=== PATIENT | female | born 1970 | race Two or more races ===

== ENCOUNTER 2024-11-22 18:02 | Inpatient (IN) | payer MEDICAID, OTHER ==
[~2024-11-22] VITALS: Ht 149.9 cm; Wt 38.2 kg
--- NOTE | 2024-11-22 18:10 | ECG ---
[facility] Test Date: 2024-11-22 Test Time: 18:07:07 Pat Name: LALITO WHATLEY Department: ED Room: 0288T Gender: F Lmft: shannon : 1970 Requested By: ZURI CUBA Order Number: [id number] Reading MD: Sly Connolly Measurements Intervals Spencer Rate: 98 P: 76 AL: 110 QRS: 63 QRSD: 72 T: 86 QT: 390 QTc: 499 Interpretive Statements Sinus rhythm Borderline short AL interval Right atrial enlargement Borderline prolonged QT interval Electronically Signed On 11-26-2024 20:37:06 PDT by Sly Connolly Please click the below link to view image of tracing.
[2024-11-22] MEDS: NALOXONE HCL 0.4 MG/ML VIAL IV ONE (18:11)
[2024-11-22 18:20] VITALS: PULSE 108; RESP 12; O2SAT 97
[2024-11-22] MEDS: NALOXONE HCL 0.4 MG/ML VIAL ONE (18:23)
[2024-11-22] MEDS: SODIUM CHLORIDE 0.9% 1,000 ML IVB ONE (18:24)
--- NOTE | 2024-11-22 18:27 | ED.PDOC ---
Altered Mental Status HPI Comments 54 y.o female presents to the ED via EMS for an evaluation of ALOC. Patient is coming from [facility] facility, was eating dinner today and went unresponsive. Per staff, patient has decreased appetite x 2 days, and has been non complaint with medication x 2-3 days. Patient's BS read 476 on scene taken by EMS who also states shallow breathing during their assessment and en route. Patient has a history of DM and HTN, however, no other medical history obtained. Time Seen by MD: 18:01 Reviewed Notes: Nurses Notes, Medications, Allergies Allergies: Coded Allergies: UNOBTAINABLE (Unverified , 11/22/24) Information Source: Patient Mode of Arrival: Ambulatory Severity: Unresponsive Timing: Hours Duration: Since onset Quality: Decreased Alertness, Change in Behavior Recent: Other Associated Signs and Symptoms: Other Past Medical History PAST MEDICAL HISTORY: DM, HTN Surgical History: Unobtainable ASSISTED LIVING NURSING DIRECTOR History: Unobtainable Family History Family History: Unobtainable Social History Smoker: Unknown Alcohol: Unobtainable Drugs: Unobtainable Lives In: Assisted Care Unable to Obtain due to: Altered Mental Status Physical Exam General Appearance: Moderate Distress HEENT: Pale Conjuntivae (L), Pale Conjuntivae (R), Pharynx Normal, TMs Normal Neck: Full Range of Motion, Non-Tender, Normal, Normal Inspection Respiratory: Chest Non-Tender, Decreased Breath Sounds, Lungs Clear, No Accessory Muscle Use, Respiratory Distress Cardiovascular: No Edema, No JVD, No Murmur, No Gallop, Normal Peripheral Pulse s, Regular Rate/Rhythm Breast Exam: Deferred Gastrointestinal: No Organomegaly, Non Tender, No Pulsatile Mass, Normal Bowel Sounds, Soft Genitalia: Deferred Pelvic: Deferred Rectal: Deferred Extremities: No calf tenderness, Normal capillary refill, No pedal edema Musculoskeletal : Apperance: Normal Neurologic: air defence officer II-XII nml as Tested, Motor Weakness, No Sensory Deficits, Other (Lethargic) Cerebellar Function: Unable to Test Reflexes: Normal Skin: Dry, Pallor, Other (Cool to touch) Lymphatic: No Adenopathy Was a procedure done? Was a procedure done?: No Differential Diagnosis (ALOC) Differential Diagnosis: Dehydration, Hypoxemia, Drug Overdose, Heart Failure, Renal Failure X-Ray, Labs, Meds, VS Vital Signs Date Time Temp Pulse Resp B/P (MAP) Pulse Ox O2 Delivery O2 Flow Rate FiO2 11/22/24 18:50 105 12 90/50 (63) 98 11/22/24 18:30 94.5 108 12 72/38 (49) 98 94.5 11/22/24 18:20 108 12 97 Nasal Cannula* 4 36 11/22/24 18:16 98 11/22/24 18:07 98 11/22/24 18:02 94.5 99 12 52 (34) 95 94.5 Lab Test 11/22/24 19:17 11/22/24 18:24 Range/Units White Blood Count 10.0 4.4-10.8 10^3/uL Red Blood Count 4.37 4.0-5.20 10^6/uL Hemoglobin 12.5 12.2-16.2 g/dL Hematocrit 41.9 36.0-46.0 % Mean Corpuscular Volume 95.8 80.0-100.0 fL Mean Corpuscular Hemoglobin 28.7 28.0-32.0 pg Mean Corpuscular Hemoglobin Concent 30.0 L 32.0-36.0 g/dL Red Cell Distribution Width 16.9 H 11.8-14.3 % Platelet Count 248 140-450 10^3/uL Mean Platelet Volume 9.1 6.9-10.8 fL Neutrophils (%) (Auto) 80.3 H 37.0-80.0 % Lymphocytes (%) (Auto) 14.5 10.0-50.0 % Monocytes (%) (Auto) 4.8 0.0-12.0 % Eosinophils (%) (Auto) 0.3 0.0-7.0 % Basophils (%) (Auto) 0.1 0.0-2.0 % Neutrophils # (Auto) 8.0 1.6-8.6 10 ^3/uL Lymphocytes # (Auto) 1.4 0.4-5.4 10 ^3/uL Monocytes # (Auto) 0.5 0-1.3 10 ^3/uL Eosinophils # (Auto) 0 0-0.8 10 ^3/uL Basophils # (Auto) 0 0-0.2 10 ^3/uL Nucleated Red Blood Cells 0.1 % Sodium Level 148 H 136-145 mmol/L Potassium Level 4.3 3.5-5.1 mmol/L Chloride Level 115 H 98-107 mmol/L Carbon Dioxide Level 12 L 20-31 mmol/L Anion Gap 21 H 5-15 Blood Urea Nitrogen 68 H 9-23 mg/dL Creatinine 2.21 H 0.550-1.02 mg/dL Glomerular Filtration Rate Calc 26 >90 mL/min BUN/Creatinine Ratio 30.8 H 10.0-20.0 Serum Glucose 345 H 74-106 mg/dL Lactic Acid Level 4.7 *H 0.4-2.0 mmol/L Calcium Level 9.1 8.7-10.4 mg/dL Troponin I High Sensitivity 54 *H </=34 ng/L Blood Gas Specimen Type Arterial Blood Gas Sample Site Left radial Blood Gas Patient Temperature 37.0 Arterial Blood Date Drawn [id number] Arterial Blood pH 7.309 L 7.350-7.450 Arterial Blood Partial Pressure CO2 22.4 L 32.0-45.0 mmHg Arterial Blood Partial Pressure O2 145.7 H 83.0-108.0 mmHg Arterial Blood HCO3 11.0 L 21.0-28.0 mmol/L Arterial Blood Oxygen Saturation 98.7 H 94.0-98.0 % Arterial Blood Base Excess -13.2 L -2.0-3.0 mmol/L Arterial Blood Oxyhemoglobin 97.6 94.0-98.0 % Arterial Blood Carboxyhemoglobin 0.5 0.5-1.5 % Arterial Blood Methemoglobin 0.6 0.0-1.5 % Ant Test Positive Blood Gas Total Hemoglobin 13.30 12.0-16.0 g/dL Blood Gas Liter Flow 3.00 Blood Gas Modality Nasal cannula Blood Gas Spontaneous Rate 16 FiO2 % 32.0 Current Medications Medications (Trade) Dose Ordered Sig/Debbie Route Start Time Stop Time Status Last Admin Sodium Chloride 1,000 ml @ 1,000 mls/hr Q1H ONCE IVB 11/22/24 18:15 11/22/24 19:14 DC 11/22/24 18:24 Naloxone HCl (Narcan) 0.2 mg ONCE ONCE IV 11/22/24 18:30 11/22/24 18:31 DC 11/22/24 18:11 CHEST RADIOGRAPH IMPRESSION: 1. Bilateral perihilar peribronchial thickening. IV Hep-Lock was established. The patient's initial temperature was only 94.5 We obtained the bear hugger. Because of the patient's hypotension and total picture we deemed this patient septic We did go ahead and start fluids per sepsis protocol The patient was also given naloxone 0.2 mg IV push which the patient's seemed to respond well to. The patient was on 3 L nasal cannula and we did an ABG which shows a pH of 7.31/pCO2 of 22/PO2 of 145.7 The CBC is within normal limits The chemistry panel shows hypochloremia with an elevated anion gap and a CO2 level of only 12 The BUN is 68 the creatinine is 2.21 The troponin level is elevated at 54 and the lactic acid level is 4.7 We will continue managing the patient's sepsis At this time, the patient was being admitted to the Images Reviewed?: Images reviewed and evaluated by me Time of 1ST Reevaluation: 18:12 Reevaluation 1ST: Unchanged Patient Education/Counseling: Pt Unresponsive Family Education/Counseling: No Family Present Departure 1 Departure Time of Disposition: 20:35 Impression: Primary Impression: Sepsis Qualified Codes: A41.9 - Sepsis, unspecified organism; R65.20 - Severe sepsis without septic shock; N17.1 - Acute kidney failure with acute cortical necrosis Additional Impressions: Dehydration Hyperchloremia Increased anion gap metabolic acidosis Hypothermia Qualified Codes: T68.XXXA - Hypothermia, initial encounter Disposition: ADMITTED INPATIENT Admit to: VERA Condition: Fair Critical Care Note Critical Care Time?: Yes (30 min-critical care time only) Stability Stability form required: Yes Unstable for transfer: ICU, CCU, PCU, VERA (Intensive VS monitoring), Low BP (low high or fluctuating BP), ED Physician Assesment (Clinical assesment) I personally scribed for ZURI CUBA MD ([email or web address]) on 11/22/24 at 18:27. Electronically submitted by Kylie Espinoza ([email or web address]). I personally scribed for ZURI CUBA MD ([email or web address]) on 11/22/24 at 19:42. Electronically submitted by Kylie Espinoza ([facility]). ZURI CUBA MD Nov 22, 2024 18:27
--- NOTE | 2024-11-22 18:56 | DVH ---
CHEST RADIOGRAPH Indication: sob Technique: Single frontal view of the chest was obtained Comparison: None FINDINGS: Lines and Tubes: None Lungs: Bilateral perihilar peribronchial thickening Pleura: No effusion. No pneumothorax. Cardiomediastinal contours: Unremarkable Bones: No acute osseous abnormality. IMPRESSION: 1. Bilateral perihilar peribronchial thickening.
[2024-11-22 19:05] LABS: Base Excess -13.2 mmol/L (-2.0-3.0)
[2024-11-22 19:15] VITALS: PULSE 100; RESP 10; O2SAT 99
[2024-11-22] MEDS: VANCOMYCIN 1GM/200ML PM 250 ML IV ONE (19:15)
[2024-11-22 19:32] LABS: Basophils # (auto) 0 10 ^3/uL (0-0.2); Basophils % (auto) 0.1 % (0.0-2.0); Eosinophils # (auto) 0 10 ^3/uL (0-0.8); Nucleated Red Blood Cells % 0.1 %
[2024-11-22 19:33] LABS: Eosinophils % (auto) 0.3 % (0.0-7.0); Hematocrit 41.9 % (36.0-46.0); Hemoglobin 12.5 g/dL (12.2-16.2); Lymphocytes # (auto) 1.4 10 ^3/uL (0.4-5.4); Lymphocytes % (auto) 14.5 % (10.0-50.0); Mean Corpuscular Hemoglobin 28.7 pg (28.0-32.0); Mean Corpuscular Volume 95.8 fL (80.0-100.0); Monocytes # (auto) 0.5 10 ^3/uL (0-1.3); Monocytes % (auto) 4.8 % (0.0-12.0); Neutrophils % (auto) 80.3 % (37.0-80.0); Platelet Count (auto) 248 10^3/uL (140-450); Red Blood Cells 4.37 10^6/uL (4.0-5.20); Red Cell Distribution Width 16.9 % (11.8-14.3)
[2024-11-22 19:40] LABS: Potassium 4.3 mmol/L (3.5-5.1)
[2024-11-22 19:41] LABS: Anion Gap 21 (5-15)
[2024-11-22 19:42] LABS: Calcium 9.1 mg/dL (8.7-10.4)
[2024-11-22 19:45] LABS: Carbon Dioxide 12 mmol/L (20-31); Chloride 115 mmol/L (98-107); Sodium 148 mmol/L (136-145)
[2024-11-22 19:47] LABS: BUN/Creatinine Ratio 30.8 (10.0-20.0); Blood Urea Nitrogen 68 mg/dL (9-23); Glucose 345 mg/dL (74-106)
[2024-11-22 19:57] LABS: Lactic Acid w/Reflex 4.7 mmol/L (0.4-2.0)
[2024-11-22] MEDS: cefTRIAXone 1GM/50ML D5W 50 ML IV ONE (21:04)
[2024-11-22] MEDS: SODIUM CHLORIDE 0.9% IV ONE (22:15)
[2024-11-22] MEDS ORDERED: DEXTROSE (50%) 50ML SYRG IV PRN (23:45)
[2024-11-22] MEDS ORDERED: ACETAMINOPHEN 325 MG TAB PO PRN (23:45)
[2024-11-22] MEDS ORDERED: VANCOMYCIN PER PHARMACY 0 MG IV SCH (23:45)
[2024-11-22] MEDS ORDERED: ONDANSETRON HCL 4 MG/2 ML VIAL IV PRN (23:45)
--- NOTE | 2024-11-22 23:53 | DVHHPRES ---
History of Present Illness Resident Creating Document: RACHEL HERNANDEZ History of Present Illness Nba Morin is a 54-year-old female patient who presents to the ED via EMS with chief complaint of altered mental status. Obtained history of present illness and past medical history from EMS due to patient's clinical status. Patient was sent from assisted living facility ([facility]) with chief complaint of unresponsiveness. She had decreased appetite two days previous to her admission and it was on adherent to medication for the past 2-3 days. She was found hypotensive on site (systolic blood pressure in the 50s). Could not obtain review of systems due to clinical status. Past medical history: Hypertension, diabetes Surgical history unobtainable Family history unobtainable Social history: Lives in assisted living facility. Tobacco, alcohol and other drug abuse is unknown. Allergies: Unobtainable Home medication: Unobtainable Patient seen and examined at bedside. Currently does not have new complaints. Per Jimbo score is of 13/15 Past Medical History HPI Past Surgical History Per HPI Family History Per HPI Past Social History Per HPI Review of Systems Review of Systems Per HPI Allergies: Coded Allergies: UNOBTAINABLE (Unverified , 11/22/24) Medications Current Medications Medications Dose Ordered Sig/Debbie Route Start Time Stop Time Status Last Admin Dose Admin Acetaminophen 650 mg Q6HP PRN PO 11/22/24 23:45 Ondansetron HCl 4 mg Q4HP PRN IV 11/22/24 23:45 Sodium Chloride 1,000 ml @ 50 mls/hr Q20H IV 11/22/24 23:45 Ceftriaxone Sodium 50 ml @ 100 mls/hr DAILY@09 IV 11/23/24 09:00 Vancomycin HCl 0 ml @ 0 mls/hr UD IV 11/22/24 23:45 UNV Diagnostic Test (Pha) 1 strip ACHS 11/23/24 07:00 Insulin Human Regular HS SC 11/23/24 22:00 Insulin Human Regular AC SC 11/23/24 07:00 Dextrose 50 ml UD PRN IV 11/22/24 23:45 Exam Vital Signs Vital Signs Date Time Temp Pulse Resp B/P (MAP) Pulse Ox O2 Delivery O2 Flow Rate FiO2 11/22/24 23:30 97.7 98 9 102/46 (64) 100 97.7 11/22/24 18:20 Nasal Cannula* 4 36 Exam Patient lying in bed, in no acute distress General: Lucid, afebrile, mucosae are moist Cardiovascular: Normal S1 and S2. No murmurs, gallops or rubs Respiratory: Normal ventilation mechanics. Clear lung sounds on auscultation Abdomen: Soft, severe suprapubic tenderness, rest of abdomen nontender, no organomegaly, normal bowel sounds. MSK/skin: Mobilizes 4 limbs. Skin is dry and warm Neurological: Oriented in 1 spheres (not in time or place). No motor no sensitive deficits. Pupils are isocoric and reactive Labs/Xrays Labs Test 11/22/24 23:05 11/22/24 21:22 11/22/24 21:17 11/22/24 19:17 Range/Units Troponin I High Sensitivity 51 *H </=34 ng/L POC Glucose 276 H 70-106 mg/dl Lactic Acid Level 1.2 0.4-2.0 mmol/L White Blood Count 10.0 4.4-10.8 10^3/uL Red Blood Count 4.37 4.0-5.20 10^6/uL Hemoglobin 12.5 12.2-16.2 g/dL Hematocrit 41.9 36.0-46.0 % Mean Corpuscular Volume 95.8 80.0-100.0 fL Mean Corpuscular Hemoglobin 28.7 28.0-32.0 pg Mean Corpuscular Hemoglobin Concent 30.0 L 32.0-36.0 g/dL Red Cell Distribution Width 16.9 H 11.8-14.3 % Platelet Count 248 140-450 10^3/uL Mean Platelet Volume 9.1 6.9-10.8 fL Neutrophils (%) (Auto) 80.3 H 37.0-80.0 % Lymphocytes (%) (Auto) 14.5 10.0-50.0 % Monocytes (%) (Auto) 4.8 0.0-12.0 % Eosinophils (%) (Auto) 0.3 0.0-7.0 % Basophils (%) (Auto) 0.1 0.0-2.0 % Neutrophils # (Auto) 8.0 1.6-8.6 10 ^3/uL Lymphocytes # (Auto) 1.4 0.4-5.4 10 ^3/uL Monocytes # (Auto) 0.5 0-1.3 10 ^3/uL Eosinophils # (Auto) 0 0-0.8 10 ^3/uL Basophils # (Auto) 0 0-0.2 10 ^3/uL Nucleated Red Blood Cells 0.1 % Sodium Level 148 H 136-145 mmol/L Potassium Level 4.3 3.5-5.1 mmol/L Chloride Level 115 H 98-107 mmol/L Carbon Dioxide Level 12 L 20-31 mmol/L Anion Gap 21 H 5-15 Blood Urea Nitrogen 68 H 9-23 mg/dL Creatinine 2.21 H 0.550-1.02 mg/dL Glomerular Filtration Rate Calc 26 >90 mL/min BUN/Creatinine Ratio 30.8 H 10.0-20.0 Serum Glucose 345 H 74-106 mg/dL Calcium Level 9.1 8.7-10.4 mg/dL Test 11/22/24 18:24 Range/Units Blood Gas Specimen Type Arterial Blood Gas Sample Site Left radial Blood Gas Patient Temperature 37.0 Arterial Blood Date Drawn [id number] Arterial Blood pH 7.309 L 7.350-7.450 Arterial Blood Partial Pressure CO2 22.4 L 32.0-45.0 mmHg Arterial Blood Partial Pressure O2 145.7 H 83.0-108.0 mmHg Arterial Blood HCO3 11.0 L 21.0-28.0 mmol/L Arterial Blood Oxygen Saturation 98.7 H 94.0-98.0 % Arterial Blood Base Excess -13.2 L -2.0-3.0 mmol/L Arterial Blood Oxyhemoglobin 97.6 94.0-98.0 % Arterial Blood Carboxyhemoglobin 0.5 0.5-1.5 % Arterial Blood Methemoglobin 0.6 0.0-1.5 % Ant Test Positive Blood Gas Total Hemoglobin 13.30 12.0-16.0 g/dL Blood Gas Liter Flow 3.00 Blood Gas Modality Nasal cannula Blood Gas Spontaneous Rate 16 FiO2 % 32.0 Assessment/Plan Assessment/Plan Assessment: Metabolic encephalopathy secondary to sepsis Septic shock probably secondary to aspiration pneumonia Acute respiratory failure probably secondary to aspiration pneumonia CELSA hemodynamically mediated NSTEMI probable type 2 secondary to above Hypothermia Metabolic acidosis with increased anion gap (hyperlacticacidemia) Diabetes Plan: Ordered IV fluids and empiric IV antibiotic (ceftriaxone and vancomycin). Ordered blood, sputum and urine culture. Patient is currently on nasal cannula at 4 L/minute Ordered Thomas catheter placement Ordered head CT to rule out intracranial bleed Patient partially responded to IV fluids, we will order norepinephrine as standby for hypotension. Patient is currently ICU status. Ordered hemoglobin A1c, patient currently on insulin sliding scale Goals of care could not be discussed with patient due to mental status. We will treat as full code status at this point Discussed plan with Dr. Steven, patient and nurses: Currently patient is ICU status due to soft blood pressure which partially responded to IV fluids, empiric IV antibiotic. Awaiting results of culture. Patient has poor prognosis Plan discussed with: Patient, Other (Nurses) My Orders Orders - RACHEL HERNANDEZ RESIDENT Procedure Category Date Status Time Admit ADMIT 11/22/24 Transmitted 23:37 Code Status CODE 11/22/24 Transmitted 23:37 Vital Signs MARVIN 11/22/24 In Process 23:37 Review Orders With [facility] 11/22/24 In Process Adm. 23:37 Npo (Nothing By DIET 11/23/24 Transmitted Mouth) Diet Breakfast Acetaminophen Tablet PHA 11/22/24 In Process (Tylenol Tablet) 23:45 Notify Of Changes [facility] 11/22/24 In Process From Base 23:37 Advance Directive MARVIN 11/22/24 In Process 23:37 Urine Bacterial JASON 11/22/24 Logged Culture 23:37 Patient Condition ORDERS 11/22/24 Transmitted 23:37 Allergies MARVIN 11/22/24 In Process 23:37 Ondansetron Hcl PHA 11/22/24 In Process (Zofran) 23:45 Drug Screen LAB 11/22/24 Logged 23:37 Oxygen By Nasal RT 11/22/24 Transmitted Cannula 23:37 Stat Ekg For Chest MARVIN 11/22/24 In Process Pain 23:37 Notify Of Changes [facility] 11/22/24 In Process From Base 23:37 [employer] Crane Operator For [facility] 11/22/24 In Process 24 Hours 23:37 Emergency Dysrhythmia MARVIN 11/22/24 In Process Protocol 23:37 Rhythm Strips Once MARVIN 11/22/24 In Process Every Shift 23:37 Complete Blood Count LAB 11/23/24 Verified 04:00 Comprehensive LAB 11/23/24 Verified Metabolic Panel 04:00 Magnesium LAB 11/23/24 Verified 04:00 Phosphorus LAB 11/23/24 Verified 04:00 Sodium Chloride 0.9% PHA 11/22/24 In Process 23:45 Sodium Chloride 0.9% PHA 11/22/24 In Process 23:45 Ceftriaxone 1gm/50ml PHA 11/23/24 In Process D5w (Rocephin) 09:00 Vancomycin Per PHA 11/22/24 Pending Pharmacy 23:45 Glucose Blood PHA 11/23/24 In Process (Accu-Chek Comfort 07:00 Insulin R (Human) PHA 11/23/24 In Process (Insulin R) 22:00 Insulin R (Human) PHA 11/23/24 In Process (Insulin R) 07:00 Dextrose 50% Syringe PHA 11/22/24 In Process 23:45 Thomas Catheters ED NURSING 11/22/24 Transmitted Date of Service: Nov 23, 2024 Billing Provider: SURYA STEVEN MD Common Visit Codes: [id number] INP/OBS CARE (HIGH) RACHEL HERNANDEZ RESIDENT Nov 22, 2024 23:53 SURYA STEVEN MD Nov 30, 2024 22:02
[2024-11-23] MEDS: SODIUM CHLORIDE 0.9% 1,000 ML IV ONE (00:01)
[2024-11-23] MEDS: SODIUM CHLORIDE 0.9% 1,000 ML IV SCH (00:01)
[2024-11-23 02:46] LABS: Urine Bacteria None Seen /hpf (None Seen)
[2024-11-23 03:25] LABS: Amphetamine Screen, Urine Neg (NEGATIVE); Barbiturate Scree,Urine Neg (NEGATIVE); Benzodiazephine Screen, Urine Neg (NEGATIVE); Cannabinoid Screen, Urine Neg (NEGATIVE); Cocaine Screen, Urine Neg (NEGATIVE); Opiate Scree,Urine Neg (NEGATIVE); Phencyclidine Screen, Urine Neg (NEGATIVE)
[2024-11-23 03:30] LABS: Urine Blood Negative /uL (Negative); Urine Clarity Clear (Clear); Urine Color Yellow (Yellow); Urine Mucus FEW (None Seen); Urine Protein, UAD TRACE (Negative); Urine Specific Gravity 1.019 (1.001-1.035); Urine Squamous Epithelial Cell None Seen /hpf (<5); Urine Urobilinogen Normal (Negative); Urine WBC 1 /HPF (0-5); Urine pH 5.5 (5.0-9.0)
[2024-11-23 03:37] LABS: COVID19 ANTIGEN SOFIA FIA NEGATIVE (NEGATIVE); Rapid Influenza A Negative (Negative); Rapid Influenza B Negative (Negative)
[2024-11-23 04:09] LABS: Basophils # (auto) 0 10 ^3/uL (0-0.2); Basophils % (auto) 0.1 % (0.0-2.0); Eosinophils # (auto) 0.1 10 ^3/uL (0-0.8); Eosinophils % (auto) 1.2 % (0.0-7.0); Hematocrit 39.2 % (36.0-46.0); Hemoglobin 12.8 g/dL (12.2-16.2); Lymphocytes # (auto) 2.5 10 ^3/uL (0.4-5.4); Mean Corpuscular Hemoglobin 29.7 pg (28.0-32.0); Mean Corpuscular Hgb Conc. 32.7 g/dL (32.0-36.0); Mean Corpuscular Volume 90.7 fL (80.0-100.0); Monocytes # (auto) 0.7 10 ^3/uL (0-1.3); Monocytes % (auto) 6.8 % (0.0-12.0); Neutrophils # (auto) 7.2 10 ^3/uL (1.6-8.6); Neutrophils % (auto) 67.9 % (37.0-80.0); Nucleated Red Blood Cells % 0.2 %; Platelet Count (auto) 237 10^3/uL (140-450); Red Blood Cells 4.32 10^6/uL (4.0-5.20); Red Cell Distribution Width 15.4 % (11.8-14.3); White Blood Cell 10.5 10^3/uL (4.4-10.8)
[2024-11-23] MEDS ORDERED: ENOXAPARIN SOD 30 MG/0.3 ML SYRINGE IV ONE (04:15)
[2024-11-23 04:23] LABS: INR 0.99 (0.9-1.15); Partial Thromboplastin Time 24.1 SEC (24.5-34.5); Prothrombin Time 10.5 sec (9.3-11.8)
[2024-11-23 04:36] LABS: Albumin 3.5 g/dL (3.2-4.8); Anion Gap 10 (5-15); BUN/Creatinine Ratio 27.9 (10.0-20.0); Bilirubin, Direct 0.1 mg/dL (<0.3); Magnesium 1.7 mg/dL (1.6-2.6); Potassium 4.4 mmol/L (3.5-5.1); Total Protein 6.3 g/dL (5.7-8.2)
[2024-11-23 04:37] LABS: Bilirubin, Total 0.3 mg/dL (0.2-1.0); Phosphorus 2.9 mg/dL (2.4-5.1)
[2024-11-23 04:43] LABS: Alanine Aminotransferase < 9 U/L (7-40); Alkaline Phosphatase 153 U/L (46-116); Aspartate Aminotransferase 12 U/L (13-40); Blood Urea Nitrogen 43 mg/dL (9-23); Calcium 8.3 mg/dL (8.7-10.4); Carbon Dioxide 17 mmol/L (20-31); Chloride 121 mmol/L (98-107); Cholesterol 213 mg/dL (< 200); Glucose 262 mg/dL (74-106); HDL Cholesterol 36 mg/dL (40-59); LDL Cholesterol 130 mg/dL (< 100); Sodium 148 mmol/L (136-145); Triglycerides 212 mg/dL (< 150)
--- NOTE | 2024-11-23 05:49 | DVH ---
EXAM: XR Chest, 1 View CLINICAL INDICATION: SOB TECHNIQUE: Frontal view of the chest. COMPARISON: XY CHEST PORTABLE on DOS: 11/22/24 FINDINGS: LUNGS AND PLEURAL SPACES: Unremarkable. No consolidation. No pneumothorax. HEART: Unremarkable. No cardiomegaly. MEDIASTINUM: Unremarkable. Normal mediastinal contour. BONES/JOINTS: Unremarkable. No acute fracture. OTHER FINDINGS: . None. IMPRESSION: No acute cardiopulmonary process.
--- NOTE | 2024-11-23 05:51 | DVH ---
EXAM: CT Head Without Intravenous Contrast CLINICAL INDICATION: Altered mental status TECHNIQUE: Axial computed tomography images of the head/brain without intravenous contrast. This CT exam was performed using one or more of the following dose reduction techniques: automated exposure control, adjustment of the mA and/or kV according to patient size, and/or use of iterative reconstru ction technique. CONTRAST: RADIATION DOSE: CTDIvol = 33.9 mGy, DLP = 960.78 mGy-cm COMPARISON: None FINDINGS: ARTIFACTS: Streak artifacts limit the evaluation for subtle intracranial hemorrhage. No gross intra cranial hemorrhage, midline shift or mass effect. If symptoms persist, further evaluation with MRI i s recommended. BRAIN AND EXTRA-AXIAL SPACES: See above. BONES/JOINTS: Unremarkable. No acute fracture. SOFT TISSUES: Unremarkable. SINUSES: Unremarkable as visualized. No acute sinusitis. MASTOID AIR CELLS: Unremarkable as visualized. No mastoid effusion. OTHER FINDINGS: . IMPRESSION: Streak artifacts limit the evaluation for subtle intracranial hemorrhage. No gross intracranial hemo rrhage, midline shift or mass effect. If symptoms persist, further evaluation with MRI is recommendromero dPascale
[2024-11-23] MEDS: InsuLIN REG 1unit/0.01ml Soln (100units/ml) SC SCH ×2 (06:49→22:40)
[2024-11-23] MEDS: ACCU-CHEK COMFORT CURVE STRIP VI SCH (07:17)
[2024-11-23] MEDS: NOREPINEPHRINE 8 MG/250ML KIT 250 ML IV SCH (07:47)
[2024-11-23] MEDS ORDERED: cefTRIAXone 1GM/50ML D5W 50 ML IV SCH (09:00)
[2024-11-23 09:08] VITALS: BP 133/61; PULSE 83; RESP 18; TEMP 98.6; O2SAT 98
[2024-11-23 09:09] VITALS: PULSE 83; RESP 18; O2SAT 98
--- NOTE | 2024-11-23 09:33 | DVHPN2 ---
Subjective Encephalopathic Reviewed: Care Plan, H&P, Labs, Medications Changes from previous H/P or p: No Changes General: Per HPI Objective Vitals Vital Signs Date Time Temp Pulse Resp B/P (MAP) Pulse Ox O2 Delivery O2 Flow Rate FiO2 11/23/24 09:05 84 11/23/24 08:19 Nasal Cannula* 2 28 11/23/24 08:00 98.6 12 133/61 (85) 100 98.6 Intake/Output Intake and Output 11/23/24 07:00 Intake Total 3880 ml Balance 3880 ml Intake IV Total 3880 ml General Appearance: mild distress, Other (Encephalopathic) HEENT: Atraumatic, PERRLA Lungs: Clear to auscultation, Normal air movement Cardiovascular: Normal S1, Normal S2 Abdomen: Normal bowel sounds, Soft, No tenderness Musculoskeletal: Normal sensory function, Normal motor function Neuro: Normal gait, Normal speech Skin: Dry, Intact Psych/Mental Status: Mental status NL, Mood NL Medications Current Medications Medications Dose Ordered Sig/Debbie Route Start Time Stop Time Status Last Admin Dose Admin Acetaminophen 650 mg Q6HP PRN PO 11/22/24 23:45 Ondansetron HCl 4 mg Q4HP PRN IV 11/22/24 23:45 Sodium Chloride 1,000 ml @ 50 mls/hr Q20H IV 11/22/24 23:45 11/23/24 00:01 50 MLS/HR Vancomycin HCl 0 ml @ 0 mls/hr UD IV 11/22/24 23:45 Diagnostic Test (Pha) 1 strip ACHS 11/23/24 07:00 11/23/24 07:17 1 STRIP Insulin Human Regular HS SC 11/23/24 22:00 Insulin Human Regular AC SC 11/23/24 07:00 11/23/24 06:49 3 UNITS Dextrose 50 ml UD PRN IV 11/22/24 23:45 Norepinephrine Bitartrate 250 ml @ 3.75 mls/hr Q24H IV 11/23/24 01:15 Pantoprazole Sodium 40 mg DAILY IV 11/23/24 10:00 Meropenem 50 ml @ 17 mls/hr Q8HR IV 11/23/24 14:00 UNV Vancomycin HCl 100 ml @ 200 mls/hr Q16H IV 11/23/24 12:00 Laboratory Results Laboratory Tests 11/23/24 03:46 Chemistry Test 11/22/24 19:17 11/23/24 03:46 Calcium Level 9.1 mg/dL (8.7-10.4) 8.3 mg/dL (8.7-10.4) L Albumin 3.5 g/dL (3.2-4.8) Magnesium Level 1.7 mg/dL (1.6-2.6) Phosphorus Level 2.9 mg/dL (2.4-5.1) Total Protein 6.3 g/dL (5.7-8.2) Coagulation Test 11/23/24 03:46 Prothrombin Time 10.5 sec (9.3-11.8) Prothrombin Time INR 0.99 (0.9-1.15) Activated Partial Thromboplast Time 24.1 SEC (24.5-34.5) L Lipid panel Test 11/23/24 03:46 Cholesterol Level 213 mg/dL (< 200) H HDL Cholesterol 36 mg/dL (40-59) L Triglycerides Level 212 mg/dL (< 150) H LFT Test 11/23/24 03:46 Alanine Aminotransferase (ALT) < 9 U/L (7-40) Alkaline Phosphatase 153 U/L (46-116) H Aspartate Amino Transferase (AST) 12 U/L (13-40) L Direct Bilirubin 0.1 mg/dL (<0.3) Total Bilirubin 0.3 mg/dL (0.2-1.0) HgA1c, TSH Test 11/23/24 03:46 Thyroid Stimulating Hormone (TSH) 0.43 uIU/mL (0.55-4.78) L Urinalysis Test 11/23/24 02:41 Urine Color Yellow (Yellow) Urine Clarity Clear (Clear) Urine pH 5.5 (5.0-9.0) Urine Specific [place] 1.019 (1.001-1.035) Urine Protein Trace (Negative) H Urine Ketones Trace (Negative) Urine Blood Negative /uL (Negative) Urine Nitrite Negative (Negative) Urine Bilirubin Negative (Negative) Urine Urobilinogen Normal mg/dL (Negative) Urine Leukocyte Esterase Negative /uL (Negative) Urine RBC 1 /hpf (0 - 4) Urine Microscopic WBC 1 /HPF (0-5) Urine Squamous Epithelial Cells None seen /hpf (<5) Urine Bacteria None seen /hpf (None Seen) Urine Mucus Few (None Seen) Urine Glucose 4+ mg/dL (Normal) H Blood Gas Results Test 11/22/24 18:24 Arterial Blood pH 7.309 (7.350-7.450) FiO2 % 32.0 Labs and/or images reviewed: Labs reviewed by me, Image(s) reviewed by me Assessment/Plan Assessment/Plan Impression: -probable toxic metabolic encephalopathy secondary to prescribed medications -cachexia -acute kidney injury , probable vasomotor nephropathy as well as prerenal -hypovolemic hypotension -hyperglycemia, probable diabetes mellitus Plan: -patient was blood pressure improved with IV resuscitation. Downgraded to telemetry unit -continue empiric antibiotic therapy -regular insulin sliding scale -NPO until patient awakens -pfeiffer cultures -PUD, DVT prophylaxis -hold hypnotics, antipsychotics -repeat Labs in a.m. Total time spent with patient discussing and formulating plan of care: 35 minutes. This medical document was created using an electronic medical record system with [employer] dictation system. Although this document has been carefully reviewed, there may still be some phonetic and typographical errors. These areas are purely typographical due to imperfections of the software programs, and do not reflect any compromise in the patient's medical care. Plan discussed with: Patient, Other (RN) Date of Service: Nov 23, 2024 Billing Provider: CAITLIN GRECO NP Common Visit Codes: [id number] INP/OBS CARE(HIGH) CAITLIN GRECO NP Nov 23, 2024 09:33
[2024-11-23] MEDS: PANTOPRAZOLE 40 MG/10 ML VIAL INJ IV SCH (09:39)
[2024-11-23] MEDS: MEROPENEM 1GM IVPB 50 ML IV SCH (11:26)
[2024-11-23] MEDS: VANCOMYCIN 500mg/100mL 100 ML IV SCH (12:00)
[2024-11-23 13:53] VITALS: O2SAT 97
[2024-11-23 20:00] VITALS: PULSE 101; RESP 12; O2SAT 97
[2024-11-24] MEDS: VANCOMYCIN 1 GM/200 ML IV ONE (06:44)
[2024-11-24 13:36] LABS: Basophils # (auto) 0 10 ^3/uL (0-0.2); Basophils % (auto) 0.6 % (0.0-2.0); Eosinophils # (auto) 0.7 10 ^3/uL (0-0.8); Eosinophils % (auto) 9.9 % (0.0-7.0); Hematocrit 36.8 % (36.0-46.0); Hemoglobin 11.8 g/dL (12.2-16.2); Lymphocytes # (auto) 2.5 10 ^3/uL (0.4-5.4); Lymphocytes % (auto) 36.1 % (10.0-50.0); Mean Corpuscular Hemoglobin 28.3 pg (28.0-32.0); Mean Corpuscular Volume 88.4 fL (80.0-100.0); Monocytes # (auto) 0.5 10 ^3/uL (0-1.3); Monocytes % (auto) 7.2 % (0.0-12.0); Neutrophils # (auto) 3.2 10 ^3/uL (1.6-8.6); Neutrophils % (auto) 46.2 % (37.0-80.0); Nucleated Red Blood Cells % 0.1 %; Platelet Count (auto) 185 10^3/uL (140-450); Red Blood Cells 4.16 10^6/uL (4.0-5.20)
[2024-11-24 14:26] VITALS: PULSE 86; RESP 14
[2024-11-24 18:47] VITALS: BP 154/100; PULSE 102; RESP 18; TEMP 97.8; O2SAT 96
--- NOTE | 2024-11-24 19:20 | DVHPN2 ---
Subjective Continues to be very lethargic and does not wake up Reviewed: Care Plan, H&P, Labs, Medications Changes from previous H/P or p: No Changes General: Per HPI Objective Vitals Vital Signs Date Time Temp Pulse Resp B/P (MAP) Pulse Ox O2 Delivery O2 Flow Rate FiO2 11/24/24 18:47 97.8 102 18 154/100 (118) 96 97.8 11/24/24 14:26 Room Air* 0 N/A Nasal Cannula* Intake/Output Intake and Output 11/24/24 07:00 Intake Total 1302 ml Output Total 1200 ml Balance 102 ml Intake Oral 0 ml IV Total 1302 ml Output Urine Total 1200 ml General Appearance: mild distress, Other (Encephalopathic) HEENT: Atraumatic, PERRLA Lungs: Clear to auscultation, Normal air movement Cardiovascular: Normal S1, Normal S2 Abdomen: Normal bowel sounds, Soft, No tenderness Musculoskeletal: Normal sensory function, Normal motor function Neuro: Normal gait, Normal speech Skin: Dry, Intact Psych/Mental Status: Mental status NL, Mood NL Medications Current Medications Medications Dose Ordered Sig/Debbie Route Start Time Stop Time Status Last Admin Dose Admin Acetaminophen 650 mg Q6HP PRN PO 11/22/24 23:45 Ondansetron HCl 4 mg Q4HP PRN IV 11/22/24 23:45 Sodium Chloride 1,000 ml @ 50 mls/hr Q20H IV 11/22/24 23:45 11/23/24 21:08 50 MLS/HR Vancomycin HCl 0 ml @ 0 mls/hr UD IV 11/22/24 23:45 Diagnostic Test (Pha) 1 strip ACHS 11/23/24 07:00 11/24/24 17:13 1 STRIP Insulin Human Regular HS SC 11/23/24 22:00 Insulin Human Regular AC SC 11/23/24 07:00 11/23/24 06:49 3 UNITS Dextrose 50 ml UD PRN IV 11/22/24 23:45 Norepinephrine Bitartrate 250 ml @ 3.75 mls/hr Q24H IV 11/23/24 01:15 Pantoprazole Sodium 40 mg DAILY IV 11/23/24 10:00 11/24/24 10:08 40 MG Vancomycin HCl 100 ml @ 200 mls/hr Q16H IV 11/25/24 01:00 Meropenem 50 ml @ 17 mls/hr Q8HR IV 11/24/24 22:00 Laboratory Results Laboratory Tests 11/23/24 03:46 11/24/24 08:18 11/24/24 13:15 Urinalysis Test 11/23/24 02:41 Urine Color Yellow (Yellow) Urine Clarity Clear (Clear) Urine pH 5.5 (5.0-9.0) Urine Specific [place] 1.019 (1.001-1.035) Urine Protein Trace (Negative) H Urine Ketones Trace (Negative) Urine Blood Negative /uL (Negative) Urine Nitrite Negative (Negative) Urine Bilirubin Negative (Negative) Urine Urobilinogen Normal mg/dL (Negative) Urine Leukocyte Esterase Negative /uL (Negative) Urine RBC 1 /hpf (0 - 4) Urine Microscopic WBC 1 /HPF (0-5) Urine Squamous Epithelial Cells None seen /hpf (<5) Urine Bacteria None seen /hpf (None Seen) Urine Mucus Few (None Seen) Urine Glucose 4+ mg/dL (Normal) H Microbiology Microbiology Date/Time Source Procedure Growth Status 11/23/24 02:41 Voided Urine Urine Culture - Preliminary Resulted 11/22/24 19:17 Blood Blood Culture - Preliminary NO GROWTH AFTER 24 HOURS OF INCUBATION. Resulted Assessment/Plan Assessment/Plan Impression: -probable toxic metabolic encephalopathy secondary to prescribed medications -cachexia -acute kidney injury , probable vasomotor nephropathy as well as prerenal -hypovolemic hypotension -hyperglycemia, probable diabetes mellitus Plan: -patient was blood pressure improved with IV resuscitation. Downgraded to telemetry unit -continue empiric antibiotic therapy -regular insulin sliding scale -NPO until patient awakens -pfeiffer cultures -PUD, DVT prophylaxis -hold hypnotics, antipsychotics -repeat Labs in a.m. Total time spent with patient discussing and formulating plan of care: 35 minutes. Plan discussed with: Other (nurse) Date of Service: Nov 24, 2024 Billing Provider: ALKA CONNORS MD Common Visit Codes: [id number] INP/OBS CARE(HIGH) ALKA CONNORS MD Nov 24, 2024 19:20
[2024-11-24 20:00] VITALS: PULSE 82; RESP 18; O2SAT 99
[2024-11-24 20:42] VITALS: BP 143/84; PULSE 86; RESP 15; TEMP 97.8; O2SAT 95
[2024-11-24] MEDS: LORazepam 2MG/ML-1ML VIAL IM ONE (23:26)
[2024-11-25] VITALS (8 sets, daily range): BP systolic 139–166; BP diastolic 67–89; PULSE 74–93; RESP 15–19; TEMP 97.1–98; O2SAT 94–99
[2024-11-25] MEDS: VANCOMYCIN 500mg/100mL 100 ML IV SCH (01:00)
[2024-11-25] MEDS: MEROPENEM 1GM IVPB 50 ML IV SCH (01:01)
[2024-11-25] MEDS: VANCOMYCIN HCL 500 MG VL ONE (01:49)
[2024-11-25 07:45] LABS: Basophils # (auto) 0 10 ^3/uL (0-0.2); Basophils % (auto) 0.3 % (0.0-2.0); Eosinophils # (auto) 0.6 10 ^3/uL (0-0.8); Eosinophils % (auto) 8.6 % (0.0-7.0); Hematocrit 36.3 % (36.0-46.0); Hemoglobin 12.2 g/dL (12.2-16.2); Lymphocytes # (auto) 2.9 10 ^3/uL (0.4-5.4); Lymphocytes % (auto) 39.4 % (10.0-50.0); Mean Corpuscular Hemoglobin 29.3 pg (28.0-32.0); Mean Corpuscular Hgb Conc. 33.5 g/dL (32.0-36.0); Mean Corpuscular Volume 87.5 fL (80.0-100.0); Monocytes # (auto) 0.5 10 ^3/uL (0-1.3); Monocytes % (auto) 7.3 % (0.0-12.0); Neutrophils # (auto) 3.3 10 ^3/uL (1.6-8.6); Neutrophils % (auto) 44.4 % (37.0-80.0); Platelet Count (auto) 175 10^3/uL (140-450); Red Blood Cells 4.15 10^6/uL (4.0-5.20); White Blood Cell 7.3 10^3/uL (4.4-10.8)
--- NOTE | 2024-11-25 14:39 | DVHPN2 ---
Subjective Patient went drawn, reported to be attempting to hit staff. Reviewed: Care Plan, H&P, Labs, Medications Changes from previous H/P or p: No Changes General: Per HPI Objective Vitals Vital Signs Date Time Temp Pulse Resp B/P (MAP) Pulse Ox O2 Delivery O2 Flow Rate FiO2 11/25/24 13:00 97.1 80 15 147/78 (101) 95 97.1 11/25/24 08:00 Room Air* 0 21 Intake/Output Intake and Output 11/25/24 07:00 Intake Total 709 ml Output Total 900 ml Balance -191 ml Intake Oral 0 ml IV Total 709 ml Output Urine Total 900 ml Stool Total 0 ml General Appearance: mild distress, Other (Encephalopathic) HEENT: Atraumatic, PERRLA Lungs: Clear to auscultation, Normal air movement Cardiovascular: Normal S1, Normal S2 Abdomen: Normal bowel sounds, Soft, No tenderness Musculoskeletal: Normal sensory function, Normal motor function Neuro: Normal gait, Normal speech Skin: Dry, Intact Psych/Mental Status: Mental status NL, Mood NL Medications Current Medications Medications Dose Ordered Sig/Debbie Route Start Time Stop Time Status Last Admin Dose Admin Acetaminophen 650 mg Q6HP PRN PO 11/22/24 23:45 Ondansetron HCl 4 mg Q4HP PRN IV 11/22/24 23:45 Sodium Chloride 1,000 ml @ 50 mls/hr Q20H IV 11/22/24 23:45 11/23/24 21:08 50 MLS/HR Vancomycin HCl 0 ml @ 0 mls/hr UD IV 11/22/24 23:45 Diagnostic Test (Pha) 1 strip ACHS 11/23/24 07:00 11/25/24 11:25 1 STRIP Insulin Human Regular HS SC 11/23/24 22:00 Insulin Human Regular AC SC 11/23/24 07:00 11/23/24 06:49 3 UNITS Dextrose 50 ml UD PRN IV 11/22/24 23:45 Norepinephrine Bitartrate 250 ml @ 3.75 mls/hr Q24H IV 11/23/24 01:15 Pantoprazole Sodium 40 mg DAILY IV 11/23/24 10:00 11/24/24 10:08 40 MG Vancomycin HCl 100 ml @ 200 mls/hr Q16H IV 11/25/24 01:00 Meropenem 50 ml @ 17 mls/hr Q8HR IV 11/24/24 22:00 11/25/24 13:48 17 MLS/HR Laboratory Results Laboratory Tests 11/23/24 03:46 11/25/24 06:00 Urinalysis Test 11/23/24 02:41 Urine Color Yellow (Yellow) Urine Clarity Clear (Clear) Urine pH 5.5 (5.0-9.0) Urine Specific [place] 1.019 (1.001-1.035) Urine Protein Trace (Negative) H Urine Ketones Trace (Negative) Urine Blood Negative /uL (Negative) Urine Nitrite Negative (Negative) Urine Bilirubin Negative (Negative) Urine Urobilinogen Normal mg/dL (Negative) Urine Leukocyte Esterase Negative /uL (Negative) Urine RBC 1 /hpf (0 - 4) Urine Microscopic WBC 1 /HPF (0-5) Urine Squamous Epithelial Cells None seen /hpf (<5) Urine Bacteria None seen /hpf (None Seen) Urine Mucus Few (None Seen) Urine Glucose 4+ mg/dL (Normal) H Microbiology Microbiology Date/Time Source Procedure Growth Status 11/23/24 02:41 Voided Urine Urine Culture - Final Complete 11/22/24 19:17 Blood Blood Culture - Preliminary NO GROWTH AFTER 48 HOURS OF INCUBATION. Resulted Labs and/or images reviewed: Labs reviewed by me, Image(s) reviewed by me Assessment/Plan Assessment/Plan Impression: -probable toxic metabolic encephalopathy secondary to prescribed medications -cachexia -acute kidney injury , probable vasomotor nephropathy as well as prerenal -hypovolemic hypotension -hyperglycemia, probable diabetes mellitus Plan: -events: All cultures were negative. Patient continues to be NPO. We will attempt to start oral intake with nutritional supplementation. -discontinue antibiotic therapy -regular insulin sliding scale -PUD, DVT prophylaxis -hold hypnotics, antipsychotics -consider transferring back to senior living facility once patient tolerates oral intake. Total time spent with patient discussing and formulating plan of care: 35 minutes. This medical document was created using an electronic medical record system with [employer] dictation system. Although this document has been carefully reviewed, there may still be some phonetic and typographical errors. These areas are purely typographical due to imperfections of the software programs, and do not reflect any compromise in the patient's medical care. Plan discussed with: Patient, Other (RN) Date of Service: Nov 25, 2024 Billing Provider: CAITLIN GRECO NP Common Visit Codes: [id number] INP/OBS CARE(HIGH) CAITLIN GRECO NP Nov 25, 2024 14:39
[2024-11-25] MEDS ORDERED: Glucerna 1.2 Cal 1Liter BOTTLE GT SCH (14:45)
[2024-11-25] MEDS: Glucerna Carbsteady SHAKE Vanilla 8oz PO SCH (17:48)
[2024-11-26] VITALS (8 sets, daily range): BP systolic 84–113; BP diastolic 44–71; PULSE 79–101; RESP 18–20; TEMP 97.9–98; O2SAT 94–99
[2024-11-26] MEDS: risperiDONE 1 MG TAB PO SCH (10:30)
--- NOTE | 2024-11-26 10:32 | DVHDS2 ---
Discharge Summary Date of Admission Nov 22, 2024 at 23:37 Date of Discharge: Nov 26, 2024 Admitting Diagnosis Shock, metabolic encephalopathy Labs/Diagnostic Data: Laboratory Results Test 11/26/24 05:22 11/25/24 06:00 11/23/24 03:46 11/23/24 02:41 POC Glucose 140 mg/dl (70-106) White Blood Count 7.3 10^3/uL (4.4-10.8) Red Blood Count 4.15 10^6/uL (4.0-5.20) Hemoglobin 12.2 g/dL (12.2-16.2) Hematocrit 36.3 % (36.0-46.0) Mean Corpuscular Volume 87.5 fL (80.0-100.0) Mean Corpuscular Hemoglobin 29.3 pg (28.0-32.0) Mean Corpuscular Hemoglobin Concent 33.5 g/dL (32.0-36.0) Red Cell Distribution Width 15.0 % (11.8-14.3) Platelet Count 175 10^3/uL (140-450) Mean Platelet Volume 9.5 fL (6.9-10.8) Neutrophils (%) (Auto) 44.4 % (37.0-80.0) Lymphocytes (%) (Auto) 39.4 % (10.0-50.0) Monocytes (%) (Auto) 7.3 % (0.0-12.0) Eosinophils (%) (Auto) 8.6 % (0.0-7.0) Basophils (%) (Auto) 0.3 % (0.0-2.0) Neutrophils # (Auto) 3.3 10 ^3/uL (1.6-8.6) Lymphocytes # (Auto) 2.9 10 ^3/uL (0.4-5.4) Monocytes # (Auto) 0.5 10 ^3/uL (0-1.3) Eosinophils # (Auto) 0.6 10 ^3/uL (0-0.8) Basophils # (Auto) 0 10 ^3/uL (0-0.2) Nucleated Red Blood Cells 0.0 % Creatinine 0.64 mg/dL (0.550-1.02) Glomerular Filtration Rate Calc 104 mL/min (>90) Prothrombin Time 10.5 sec (9.3-11.8) Prothrombin Time INR 0.99 (0.9-1.15) Activated Partial Thromboplast Time 24.1 SEC (24.5-34.5) Sodium Level 148 mmol/L (136-145) Potassium Level 4.4 mmol/L (3.5-5.1) Chloride Level 121 mmol/L (98-107) Carbon Dioxide Level 17 mmol/L (20-31) Anion Gap 10 (5-15) Blood Urea Nitrogen 43 mg/dL (9-23) BUN/Creatinine Ratio 27.9 (10.0-20.0) Serum Glucose 262 mg/dL (74-106) Hemoglobin A1c 11.2 % A1C (<5.7) Calcium Level 8.3 mg/dL (8.7-10.4) Phosphorus Level 2.9 mg/dL (2.4-5.1) Magnesium Level 1.7 mg/dL (1.6-2.6) Total Bilirubin 0.3 mg/dL (0.2-1.0) Direct Bilirubin 0.1 mg/dL (<0.3) Aspartate Amino Transferase (AST) 12 U/L (13-40) Alanine Aminotransferase (ALT) < 9 U/L (7-40) Alkaline Phosphatase 153 U/L (46-116) Ammonia < 10 umol/L (11-32) Total Protein 6.3 g/dL (5.7-8.2) Albumin 3.5 g/dL (3.2-4.8) Triglycerides Level 212 mg/dL (< 150) Cholesterol Level 213 mg/dL (< 200) LDL Cholesterol 130 mg/dL (< 100) HDL Cholesterol 36 mg/dL (40-59) Vitamin B12 Level 1561 pg/mL (211-911) Vitamin D 25-Hydroxy 29.9 ng/mL (30.0-100) Thyroid Stimulating Hormone (TSH) 0.43 uIU/mL (0.55-4.78) Urine Color Yellow (Yellow) Urine Clarity Clear (Clear) Urine pH 5.5 (5.0-9.0) Urine Specific [place] 1.019 (1.001-1.035) Urine Protein Trace (Negative) Urine Ketones Trace (Negative) Urine Blood Negative /uL (Negative) Urine Nitrite Negative (Negative) Urine Bilirubin Negative (Negative) Urine Urobilinogen Normal mg/dL (Negative) Urine Leukocyte Esterase Negative /uL (Negative) Urine RBC 1 /hpf (0 - 4) Urine Microscopic WBC 1 /HPF (0-5) Urine Squamous Epithelial Cells None seen /hpf (<5) Urine Bacteria None seen /hpf (None Seen) Urine Mucus Few (None Seen) Urine Glucose 4+ mg/dL (Normal) Urine Opiates Screen Neg (NEGATIVE) Urine Fentanyl Screen Neg (NEGATIVE) Urine Barbiturates Screen Neg (NEGATIVE) Urine Phencyclidine Screen Neg (NEGATIVE) Urine Amphetamines Screen Neg (NEGATIVE) Urine Benzodiazepines Screen Neg (NEGATIVE) Urine Cocaine Screen Neg (NEGATIVE) Urine Cannabinoids Screen Neg (NEGATIVE) Test 11/23/24 02:30 11/22/24 23:05 11/22/24 21:17 11/22/24 18:24 Influenza Type A Antigen Negative (Negative) Influenza Type B Antigen Negative (Negative) SARS-CoV-2 Antigen (Rapid) Negative (NEGATIVE) Troponin I High Sensitivity 51 ng/L (</=34) Lactic Acid Level 1.2 mmol/L (0.4-2.0) Blood Gas Specimen Type Arterial Blood Gas Sample Site Left radial Blood Gas Patient Temperature 37.0 Arterial Blood Date Drawn [id number] Arterial Blood pH 7.309 (7.350-7.450) Arterial Blood Partial Pressure CO2 22.4 mmHg (32.0-45.0) Arterial Blood Partial Pressure O2 145.7 mmHg (83.0-108.0) Arterial Blood HCO3 11.0 mmol/L (21.0-28.0) Arterial Blood Oxygen Saturation 98.7 % (94.0-98.0) Arterial Blood Base Excess -13.2 mmol/L (-2.0-3.0) Arterial Blood Oxyhemoglobin 97.6 % (94.0-98.0) Arterial Blood Carboxyhemoglobin 0.5 % (0.5-1.5) Arterial Blood Methemoglobin 0.6 % (0.0-1.5) Ant Test Positive Blood Gas Total Hemoglobin 13.30 g/dL (12.0-16.0) Blood Gas Liter Flow 3.00 Blood Gas Modality Nasal cannula Blood Gas Spontaneous Rate 16 FiO2 % 32.0 Other Laboratory Tests 11/25/24 06:00 11/23/24 03:46 Brief Hx & Hospital Course: History of Present Illness Nba Morin is a 54-year-old female patient who presents to the ED via EMS with chief complaint of altered mental status. Obtained history of present illness and past medical history from EMS due to patient's clinical status. Patient was sent from assisted living facility ([facility]) with chief complaint of unresponsiveness. She had decreased appetite two days previous to her admission and it was on adherent to medication for the past 2-3 days. She was found hypotensive on site (systolic blood pressure in the 50s). Could not obtain review of systems due to clinical status. Course of hospitalization: Patient was started on IV replete, as well as norepinephrine drip while in the emergency room. Patient had improvement with the patient's vital signs, but remained somewhat somnolent. Review of the medications from her assisted living/[facility]pc facility reveals that the patient was on multiple antipsychotic medications. All of these medications were held. Patient was now awake, tolerating oral intake. Blood sugars were controlled with regular insulin sliding scale. There was some notation of combativeness today. When I assessed the patient, patient was able to follow commands and states that she was eating okay. She was agreeable to be discharged home. Further course of care per her accepting provider. Recommend to re-evaluate the patient's antipsychotic medications for possible polypharmacy leading to hypotension as well as metabolic encephalopathy. Physical examination General: Alert and Oriented x3. No acute distress. Cachexia Eyes: EOMI. Anicteric. HENT: Moist mucous membranes. Lungs: Clear to auscultation bilaterally. No accessory muscle use. Cardiovascular: Regular rate and rhythm. No murmur. No JVD. Abdomen: Soft, non-tender and non-distended. No palpable masses. Extremities: No edema. Non-tender. Skin: No rashes or lesions. Warm. Neurologic: No focal neurological deficits. CN II-XII grossly intact, but not individually tested. Psychiatric: Cooperative. Appropriate mood and affect. Total time spent with patient discussing and formulating plan of care: 35 minutes. This medical document was created using an electronic medical record system with [employer] dictation system. Although this document has been carefully reviewed, there may still be some phonetic and typographical errors. These areas are purely typographical due to imperfections of the software programs, and do not reflect any compromise in the patient's medical care. Condition at Discharge: Guarded Final Diagnosis/Problems List Toxic metabolic encephalopathy Secondary diagnosis: -cachexia -acute kidney injury , probable vasomotor nephropathy as well as prerenal -hypovolemic hypotension -hyperglycemia, probable diabetes mellitus Discharge Disposition: Residential Retirement Discharge Instruct/Medications Diet: Consistent carbohydrate, Cardiac 2g Na,low cholest (2 gm sodium, low cholesterol) Activity: No Restrictions, As Tolerated Follow Up/Referral: Per accepting provider Medications: Refer to medication reconciliation form 36 Discharge Statement: "Patient was advised to return to the ER or call 911 if any headaches, dizziness, shortness of breath, chest pain, abdominal pain, bleeding, fevers, or worsening of medical condition. Patient was counseled about treatment plan, medications, possible side effects, patientverbalized understanding. All questions were answered to the best of my ability. This discharge took greater then 30 minutes in planning, reviewing documentation, counseling the patient, and discussing with other team members." ASSESSMENT ASSESSMENT Assessment Date of Service: Nov 26, 2024 Billing Provider: CAITLIN GRECO NP Common Visit Codes: [id number] DISCH DAY >30min CAITLIN GRECO NP Nov 26, 2024 10:32
[2024-11-27 05:00] VITALS: BP 104/63; PULSE 89; RESP 18; O2SAT 99
[2024-11-27 08:00] VITALS: PULSE 86
[2024-11-27] MEDS: CLOPIDOGREL BISULFATE 75 MG TAB PO SCH (09:48)
--- NOTE | 2024-11-27 15:52 | DVHPN2 ---
Subjective Denies any symptoms Reviewed: Care Plan, H&P, Labs, Medications Changes from previous H/P or p: No Changes General: Per HPI Objective Vitals Vital Signs Date Time Temp Pulse Resp B/P (MAP) Pulse Ox O2 Delivery O2 Flow Rate FiO2 11/27/24 08:00 86 11/27/24 08:00 Room Air* 0 21 11/27/24 05:00 18 104/63 (77) 99 11/26/24 04:41 98.0 98.0 Intake/Output Intake and Output 11/27/24 06:59 Intake Total 3456 ml Output Total 1950 ml Balance 1506 ml Intake Oral 3456 ml Output Urine Total 1950 ml General Appearance: Alert, mild distress, Other (Encephalopathic) HEENT: Atraumatic, PERRLA Lungs: Clear to auscultation, Normal air movement Cardiovascular: Normal S1, Normal S2 Abdomen: Normal bowel sounds, Soft, No tenderness Musculoskeletal: Normal sensory function, Normal motor function Neuro: Normal gait, Normal speech Skin: Dry, Intact Psych/Mental Status: Mental status NL, Mood NL Medications Current Medications Medications Dose Ordered Sig/Debbie Route Start Time Stop Time Status Last Admin Dose Admin Acetaminophen 650 mg Q6HP PRN PO 11/22/24 23:45 Ondansetron HCl 4 mg Q4HP PRN IV 11/22/24 23:45 Diagnostic Test (Pha) 1 strip ACHS 11/23/24 07:00 11/26/24 21:10 1 STRIP Insulin Human Regular HS SC 11/23/24 22:00 11/26/24 21:10 8 UNITS Insulin Human Regular AC SC 11/23/24 07:00 11/26/24 11:37 9 UNITS Dextrose 50 ml UD PRN IV 11/22/24 23:45 Pantoprazole Sodium 40 mg DAILY IV 11/23/24 10:00 11/26/24 08:28 40 MG Enteral Nutritional Formula 240 ml TIDWM PO 11/25/24 18:00 11/27/24 11:25 240 ML Clopidogrel Bisulfate 75 mg DAILY PO 11/27/24 10:00 Risperidone 4 mg DAILY PO 11/26/24 10:30 Laboratory Results Laboratory Tests 11/23/24 03:46 11/25/24 06:00 Urinalysis Test 11/23/24 02:41 Urine Color Yellow (Yellow) Urine Clarity Clear (Clear) Urine pH 5.5 (5.0-9.0) Urine Specific [place] 1.019 (1.001-1.035) Urine Protein Trace (Negative) H Urine Ketones Trace (Negative) Urine Blood Negative /uL (Negative) Urine Nitrite Negative (Negative) Urine Bilirubin Negative (Negative) Urine Urobilinogen Normal mg/dL (Negative) Urine Leukocyte Esterase Negative /uL (Negative) Urine RBC 1 /hpf (0 - 4) Urine Microscopic WBC 1 /HPF (0-5) Urine Squamous Epithelial Cells None seen /hpf (<5) Urine Bacteria None seen /hpf (None Seen) Urine Mucus Few (None Seen) Urine Glucose 4+ mg/dL (Normal) H Microbiology Microbiology Date/Time Source Procedure Growth Status 11/24/24 11:20 Nose MRSA Screen - Final Complete 11/23/24 02:41 Voided Urine Urine Culture - Final Complete 11/22/24 19:17 Blood Blood Culture - Preliminary NO GROWTH AFTER 72 HOURS OF INCUBATION. Resulted Labs and/or images reviewed: Labs reviewed by me, Image(s) reviewed by me Assessment/Plan Assessment/Plan Impression: -probable toxic metabolic encephalopathy secondary to prescribed medications -cachexia -acute kidney injury , probable vasomotor nephropathy as well as prerenal -hypovolemic hypotension -hyperglycemia, probable diabetes mellitus Plan: -events: [facility]. -regular insulin sliding scale -PUD, DVT prophylaxis -hold hypnotics, antipsychotics -consider transferring back to jail facility once patient tolerates oral intake. Total time spent with patient discussing and formulating plan of care: 35 minutes. This medical document was created using an electronic medical record system with [employer] dictation system. Although this document has been carefully reviewed, there may still be some phonetic and typographical errors. These areas are purely typographical due to imperfections of the software programs, and do not reflect any compromise in the patient's medical care. Plan discussed with: Patient, Other (RN) My Orders Orders - CAITLIN GRECO NP Procedure Category Date Status Time Discharge DISCHARGE 11/27/24 Transmitted 14:20 Date of Service: Nov 27, 2024 Billing Provider: CAITLIN GRECO NP Common Visit Codes: [id number] INP/OBS CARE(HIGH) CAITLIN GRECO NP Nov 27, 2024 15:52
== END 2024-11-27 16:25 | disposition home or self-care (01) | DRG 720 ==
LOC: EDBD 18:02 → ER 18:02 → OVERFLOW 23:37 → WEST WING 11-24 18:55 → TELE-WESTW 11-25 11:05
PROVIDERS: ADMIT Nurse Practitioner Acute Care; ATTEND Nurse Practitioner Acute Care
DX: A41.9 Sepsis, unspecified organism (principal); N17.0 Acute kidney failure with tubular necrosis; J69.0 Pneumonitis due to inhalation of food and vomit; R65.21 Severe sepsis with septic shock; G92.8 Other toxic encephalopathy; E87.20 Acidosis, unspecified; R64 Cachexia; J18.9 Pneumonia, unspecified organism; E11.65 Type 2 diabetes mellitus with hyperglycemia; E86.0 Dehydration; E86.1 Hypovolemia; E87.8 Other disorders of electrolyte and fluid balance, not elsewhere classified; I10 Essential (primary) hypertension; Z68.1 Body mass index [BMI] 19.9 or less, adult; Z79.899 Other long term (current) drug therapy
CPT/HCPCS: 36415; 36600; 70450; 71045; 80048; 80053; 80061; 80076; 80307; 81001; 82140; 82306; 82565; 82607; 82805; 82962; 83036; 83605; 83735; 84100; 84443; 84484; 85025; 85610; 85730; 87040; 87081; 87086; 87426; 87804; 93005; 96365; 99291; G0378; J1815; J2185; J2470; J7060